=== PATIENT | male | born 1985 | race American Indian/Alaskan Native ===

== ENCOUNTER 2018-07-18 00:38 | Emergency (ER) | payer SELFPAY | END 2018-07-18 00:43 | disposition left against medical advice (07) | LOC: ED 00:38 | DX: S09.92XA Unspecified injury of nose, initial encounter (principal); Z53.21 Procedure and treatment not carried out due to patient leaving prior to being seen by health care provider; X58.XXXA Exposure to other specified factors, initial encounter; Y93.89 Activity, other specified; Y92.89 Other specified places as the place of occurrence of the external cause; Y99.8 Other external cause status ==

== ENCOUNTER 2019-04-15 00:29 | Emergency (ER) | payer SELFPAY ==
[2019-04-15 00:39] VITALS: BP 125/77
== END 2019-04-15 03:00 | disposition left against medical advice (07) ==
LOC: ED 00:29
DX: S09.90XA Unspecified injury of head, initial encounter (principal); Z53.21 Procedure and treatment not carried out due to patient leaving prior to being seen by health care provider; X58.XXXA Exposure to other specified factors, initial encounter; Y93.89 Activity, other specified; Y92.89 Other specified places as the place of occurrence of the external cause; Y99.8 Other external cause status